=== PATIENT | male | born 2000 | race Caucasian/White ===

== ENCOUNTER → 2023-01-14 09:30 | Outpatient (BNVA) | payer OTHER, SELFPAY | PROVIDERS: Visit Provider Internal Medicine | DX: S67.21XA Crushing injury of right hand, initial encounter (principal); S67.22XA Crushing injury of left hand, initial encounter; S62.601A Fracture of unspecified phalanx of left index finger, initial encounter for closed fracture; W24.0XXA Contact with lifting devices, not elsewhere classified, initial encounter; Z23 Encounter for immunization | CPT/HCPCS: 12004; 90715; 99204 ==

== ENCOUNTER → 2023-01-15 10:51 | Outpatient (BNVA) | payer OTHER, SELFPAY | PROVIDERS: Visit Provider Physician Assistant Medical | DX: S67.21XA Crushing injury of right hand, initial encounter (principal); S67.22XA Crushing injury of left hand, initial encounter; S61.211A Laceration without foreign body of left index finger without damage to nail, initial encounter; S61.218A Laceration without foreign body of other finger without damage to nail, initial encounter; W31.9XXA Contact with unspecified machinery, initial encounter | CPT/HCPCS: 99213 ==

== ENCOUNTER → 2023-01-18 11:08 | Outpatient (BNVA) | payer OTHER, SELFPAY | PROVIDERS: Visit Provider Internal Medicine | DX: S61.211A Laceration without foreign body of left index finger without damage to nail, initial encounter (principal); S62.661A Nondisplaced fracture of distal phalanx of left index finger, initial encounter for closed fracture; W24.0XXA Contact with lifting devices, not elsewhere classified, initial encounter | CPT/HCPCS: 99214 ==

== ENCOUNTER 2023-01-22 12:08 | Outpatient (REF) | payer OTHER, SELFPAY ==
--- NOTE | ~2023-01-22 | XR_ITS ---
EXAMINATION: XR RIGHT HAND, LEFT HAND CLINICAL INFORMATION: Bilateral hand pain. COMPARISON: 01/14/2023 TECHNIQUE: 3 views each of the bilateral hands. FINDINGS: LEFT HAND: Similar appearance of mildly displaced fracture through the distal tuft of the second digit of the left hand. Small sclerotic focus overlying the lunate may represent a bone island. RIGHT HAND: The joint spaces and alignment are preserved. Bone mineralization is normal. No displaced fracture identified. XR/XR hand LT min 3V IMPRESSION: 1. Similar appearance of mildly displaced fracture through the distal tuft of the second digit of the left hand. 2. No displaced fracture of the right hand.
--- NOTE | ~2023-01-22 | XR_ITS ---
EXAMINATION: XR RIGHT HAND, LEFT HAND CLINICAL INFORMATION: Bilateral hand pain. COMPARISON: 01/14/2023 TECHNIQUE: 3 views each of the bilateral hands. FINDINGS: LEFT HAND: Similar appearance of mildly displaced fracture through the distal tuft of the second digit of the left hand. Small sclerotic focus overlying the lunate may represent a bone island. RIGHT HAND: The joint spaces and alignment are preserved. Bone mineralization is normal. No displaced fracture identified. XR/XR hand RT min 3V IMPRESSION: 1. Similar appearance of mildly displaced fracture through the distal tuft of the second digit of the left hand. 2. No displaced fracture of the right hand.
== END 2023-01-22 12:09 | disposition home or self-care (01) ==
LOC: HO.HOSX 12:08
PROVIDERS: Visit Provider Orthopaedic Surgery
DX: S62.631B Displaced fracture of distal phalanx of left index finger, initial encounter for open fracture (principal); M79.641 Pain in right hand
CPT/HCPCS: 73130; 99202

== ENCOUNTER 2023-01-22 13:42 | Outpatient (AMB) | payer OTHER, SELFPAY ==
--- NOTE | 2023-01-22 14:10 | A.OFFVIS_ITS ---
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 Seen at work connection same day where xrays were taken and he received 2-3 stitches as well. Currently states he is limited ROM, no sensation at DIP joint, swelling and has open laceration. St ates he has tinging at tip of his finger as well. 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 He complains of pain and limited ROM of his left index finger. He also says he has numbness at the tip of his index finger since his injury. He has some mild pain in his right hand but says this is tolerable and improving with time. 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 He has been taking a course of Doxycycline and denies any symptoms of infection. 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 Review of Systems Const All systems reviewed & are unremarkable except as noted in HPI and below Physical Exam Vital Signs: BMI result Body Mass Index 29.6 Const General: cooperative, healthy appearing and no acute distress Orientation/consciousness: patient oriented x3 HEENT Head: Yes normocephalic and Yes atraumatic Eyes EOM: EOMs intact bilaterally Resp Effort & Inspection: normal respiratory effort and able to speak in complete sentences Cardio Jugular venous distension: no JVD Skin General skin exam: turgor normal Rashes: no rashes Neuro General: patient oriented x3 Extrem Other: Evaluation of Left Upper Extremity: The patient is alert, oriented, and in no acute distress Neuro: Median, Ulnar, Radial nerves motor and sensory intact and sensation is normal to the tips of all digits Vascular: Cap refill brisk ROM: Mild index finger stiffness in the MCP and PIP joints. We worked on some gentle rugfs-ae-hbomai exercises with good improvement. He can make a fist and extend the middle ring and small fingers easily. The ring finger is still mildly tender from the PIP joint to the D IP joint. He has good range of motion across these joints with good stability of the joints. No tenderness across the metacarpals thumb or wrist. Skin: He has abrasions over the dorsal aspect of the index finger middle and distal phalanxes. On the volar side it looks like the skin basically ruptured longitudinally across the proximal pad D IP joint to the distal aspect of the middle phalanx. There are some absorbable sutures in place. No erythema or drainage or evidence of infection. . Radiographs: 3 views of the left hand were taken, viewed, and compared to radiographs from 01/14/23. They show a long oblique fracture of the left index finger distal phalanx, minimally displaced. Psych Appearance: grossly normal Affect: normal affect Attitude: cooperative Office Procedures Fracture Care Details: Distal phalanx fracture 54055 Fracture Billing Code: Fracture Billing Code Assessment & Plan Assessment & Plan (1) Open fracture of distal phalanx of left index finger: Code(s): S62.631B - Displaced fracture of distal phalanx of left index finger, initial encounter for open fracture Plan Assessment & Plan: 1. Left index finger open long oblique distal phalanx fracture, minimally displaced From a crush injury, DOI: 01/14/23 This is a workers comp visit I educated him about this condition I believe we can manage this non operatively. He is going to finish up his oral antibiotics. No evidence of infection today. I explained the signs and symptoms of infection, if the patient develops any new or worsening erythema, drainage, pain, or warmth they should contact the clinic or attend the ED. I am going to let him start working on wound care and home, and encouraged him to wash it with soap and water every day but no immersion. He was fitted for a finger splint to allow for PIP motion that he should wear 24/09 except for showering wound care. I discussed activity modification, he is to lift nothing heavier than a cellphone for the next for weeks He was given a note for work saying he can not continue working on light duty with a 1 lb weight limit for his left hand for 4 weeks He will follow up next week for wound check and with new radiographs three views of the left hand with attention to the index finger. Scribed for Marianne Valerio MD by Mikal Avitia, medical instrument cable fabricator, on 01/22/23 at 2:40 PM, EST. Orders: Orders XR hand LT min 3V Today M79.642 - Pain in left hand XR hand RT min 3V Today M79.641 - Pain in right hand Coding Level of Care Code New Pt Level 3 (44949) Diagnoses Open fracture of distal phalanx of left index finger S62.631B CPT Codes Fracture Care - Fracture Billing Code: Fracture Billing Code ([id number])
[2023-01-22 14:11] VITALS: BMI 29.6
== END 2023-01-22 14:54 | disposition home or self-care (01) ==
PROVIDERS: Visit Provider Orthopaedic Surgery
DX: S62.631B Displaced fracture of distal phalanx of left index finger, initial encounter for open fracture (principal)
CPT/HCPCS: 99203

== ENCOUNTER 2023-01-31 12:08 | Outpatient (REF) | payer OTHER, SELFPAY ==
--- NOTE | ~2023-01-31 | XR_ITS ---
EXAMINATION: XR HAND, LEFT CLINICAL INFORMATION: Pain. COMPARISON: Prior radiographs, most recently 01/22/2023. TECHNIQUE: PA, lateral, and oblique views of the left hand. FINDINGS: Bony alignment and mineralization are normal. An oblique fracture is seen of the shaft and distal tuft of the second distal phalanx. There is stable mild displacement, without significant callus formation. No dislocation is seen. The proximal and distal carpal rows are intact. No focal soft tissue swelling, gas or foreign body. XR/XR hand LT min 3V IMPRESSION: A stable mildly displaced fracture is seen of the second distal phalanx. No new callus formation is seen.
== END 2023-01-31 12:09 | disposition home or self-care (01) ==
LOC: HO.HOSX 12:08
PROVIDERS: Visit Provider Physician Assistant
DX: S62.631B Displaced fracture of distal phalanx of left index finger, initial encounter for open fracture (principal)
CPT/HCPCS: 73130; 99212

== ENCOUNTER 2023-01-31 15:18 | Outpatient (AMB) | payer OTHER, SELFPAY ==
--- NOTE | 2023-01-31 15:22 | A.OFFVIS_ITS ---
Intake Vital Signs 01/31/23 15:29 Height 6 ft 5 in Weight 250 lb BMI 29.6 Intake Visit Reasons: OV-B/L Crush injury LAC L 2ND Finger/XRays Intake Note: Navarro 22 yr old male presents today for his follow up visit for his fracture of distal phalanx of left index finger 01/14/23. States he has been using his splint. Currently he has mild pain. This is a W/C injury. Allergies No Known Allergies Allergy (Verified 01/31/23 15:26) HPI OV-B/L Crush injury LAC L 2ND Finger/XRays HPI Details 22-year-old right hand dominant male who presents in the office today for a follow up of a crushing injury with laceration to the left 2nd digit while at work when his hand was crushed with a pallet naveen on 01/14/2023. The patient states he has been using the splint. He reports mild pain. 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 Review of Systems Const All systems reviewed & are unremarkable except as noted in HPI and below Physical Exam Vital Signs: BMI result Body Mass Index 29.6 Const General: cooperative, healthy appearing and no acute distress Orientation/consciousness: patient oriented x3 HEENT Head: Yes normocephalic and Yes atraumatic Eyes EOM: EOMs intact bilaterally Resp Effort & Inspection: normal respiratory effort and able to speak in complete sentences Cardio Jugular venous distension: no JVD Skin General skin exam: turgor normal Rashes: no rashes Neuro General: patient oriented x3 Extrem Other: Abrasions over the dorsal aspect of the index finger middle and distal phalanxes. On the volar side it looks like the skin ruptured longitudinally across the proximal pad DIP joint to the distal aspect of the middle phalanx. No absorbable sutures are visible. No erythema or drainage or evidence of infect ion. Mild index finger stiffness in the MCP and PIP joints. We worked on some gentle yshtz-rz-tsrtpz exercises with good improvement.He can make a fist and extend the middle ring and small fingers easily. The ring finger is still mildly tender from the PIP joint to the DIP joint. He has good range of motion across these joints with good stability of the joints. Sensation is intact. Capillary refill is brisk. Psych Appearance: grossly normal Affect: normal affect Attitude: cooperative Assessment & Plan Assessment & Plan (1) Open fracture of distal phalanx of left index finger: Code(s): S62.631B - Displaced fracture of distal phalanx of left index finger, initial encounter for open fracture Plan Mr. Kenyon is a 22-year-old right hand dominant male who presents in the office today for a follow up of a crushing injury with laceration to the left 2nd digit while at work when his hand was crushed with a pallet naveen on 01/14/2023. The patient states he has been using the splint. He reports mild pain. 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 The wound was evaluated in the office today and it yields no evidence of infection. He completed his course of antibiotics on 01/21/2023 and did not notice any increase in erythema, edema, drainage, or warmth. He was educated on signs of infection, which are as follows but not limited to erythema, edema, drainage, or warmth. If he is to experience any of these symptoms he is to contact the office immediately or present to the ED. I would like to see him back in 2 weeks for a wound check. The wound was redressed and finger was splinted while in the office today at the DIP joint. Follow up will be in 2 weeks for a wound check, or sooner if needed. X-rays of the left hand which were obtained while in the office today and were reviewed by me, Falguni Nelson PA-C, revealed routine healing of a distal phalanx fracture of the left index finger. Orders: Orders XR hand LT min 3V Today M79.643 - Pain in unspecified hand Patient Instructions: Scribed for Falguni Nelson PA-C by Mariam Waller medical transcription editor, on 01/31/2023 at 3:31 pm, EST. Coding Level of Care Code Global (46224) Diagnoses Open fracture of distal phalanx of left index finger S62.631B
[2023-01-31 15:29] VITALS: BMI 29.6
== END 2023-01-31 15:36 | disposition home or self-care (01) ==
PROVIDERS: Visit Provider Physician Assistant
DX: S62.631D Displaced fracture of distal phalanx of left index finger, subsequent encounter for fracture with routine healing (principal)
CPT/HCPCS: 99213

== ENCOUNTER 2023-02-14 14:24 | Outpatient (REF) | payer OTHER, SELFPAY ==
--- NOTE | ~2023-02-14 | XR_ITS ---
EXAMINATION: XR HAND, LEFT CLINICAL INFORMATION: Pain in hand. COMPARISON: Multiple prior chest most recent 01/31/2023.. TECHNIQUE: PA, lateral, and oblique views of the left hand. FINDINGS: There is a mildly comminuted minimally displaced fracture the second distal phalanx. Alignment unchanged. There may be minimal increased density along the fracture line suggesting minimal fracture healing. No definite change compared to prior. The remaining bones joints and soft tissues unremarkable. XR/XR hand LT min 3V IMPRESSION: Minimal if any healing of the second distal phalanx fracture. No significant change compared to prior.
== END 2023-02-14 14:25 | disposition home or self-care (01) ==
LOC: HO.HOSX 14:24
PROVIDERS: Visit Provider Physician Assistant
DX: S62.661D Nondisplaced fracture of distal phalanx of left index finger, subsequent encounter for fracture with routine healing (principal); S61.211D Laceration without foreign body of left index finger without damage to nail, subsequent encounter; M79.645 Pain in left finger(s); W31.89XD Contact with other specified machinery, subsequent encounter
CPT/HCPCS: 73130; 99212

== ENCOUNTER 2023-02-14 14:24 | Outpatient (AMB) | payer OTHER, SELFPAY ==
--- NOTE | 2023-02-14 14:34 | MHC.OFFVIS ---
Intake Vital Signs 02/14/23 14:35 Height 6 ft 5 in Intake Visit Reasons: OV-B/L Crush injury LAC L 2ND Finger/XRays Intake Note: Navarro 22 yr old male presents today for his follow up visit for his fracture of distal phalanx of left index finger 01/14/23. Patient reports still having pain and discomfort. Having numbness since his injruy. Allergies No Known Allergies Allergy (Verified 02/14/23 14:35) HPI OV-B/L Crush injury LAC L 2ND Finger/XRays HPI Details 22-year-old right hand dominant male who presents in the office today for a wound check and follow up of a crushing injury with laceration to the left 2nd digit while at work when his hand was crushed with a pallet naveen on 01/14/2023. I last saw the patient in the office on 01/31/2023 status post completion of his antibiotic on 01/21/2023 with no increase of erythema, edema, drainage, or warmth. The patient reports still having pain and discomfort. He confirms having numbness since the injury. 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 Review of Systems Const All systems reviewed & are unremarkable except as noted in HPI and below Physical Exam Const General: cooperative, healthy appearing and no acute distress Orientation/consciousness: patient oriented x3 HEENT Head: Yes normocephalic and Yes atraumatic Eyes EOM: EOMs intact bilaterally Resp Effort & Inspection: normal respiratory effort and able to speak in complete sentences Cardio Jugular venous distension: no JVD Skin General skin exam: turgor normal Rashes: no rashes Neuro General: patient oriented x3 Extrem Other: Abrasions over the dorsal aspect of the index finger middle and distal phalanxes. On the volar side it looks like the skin ruptured longitudinally across the proximal pad DIP joint to the distal aspect of the middle phalanx. Absorbable sutures are visible. No erythema or drainage or evidence of infection. Mild index finger stiffness in the MCP and PIP joints. We worked on some gentle hiitj-zr-gxczcz exercises with good improvement and he was able to then reach finger tip to the palm. He can make a fist and extend the middle ring and small fingers easily. The ring finger is still mildly tender from the PIP joint to the DIP joint. He has good range of motion across these joints with good stability of the joints. Sensation is intact. Capillary refill is brisk. Psych Appearance: grossly normal Affect: normal affect Attitude: cooperative Assessment & Plan Assessment & Plan (1) Open fracture of distal phalanx of left index finger: Code(s): S62.631B - Displaced fracture of distal phalanx of left index finger, initial encounter for open fracture Qualifiers: Encounter type: subsequent encounter Fracture alignment: nondisplaced Fracture healing: with routine healing Qualified Code(s): S62.661D - Nondisplaced fracture of distal phalanx of left index finger, subsequent encounter for fracture with routine healing Plan Mr. Kenyon is a 22-year-old right hand dominant male who presents in the office today for a wound check and follow up of a crushing injury with laceration to the left 2nd digit while at work when his hand was crushed with a pallet naveen on 01/14/2023. I last saw the patient in the office on 01/31/2023 status post completion of his antibiotic on 01/21/2023 with no increase of erythema, edema, drainage, or warmth. The patient reports still having pain and discomfort. He confirms having numbness since the injury. 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 Reported observed sutures are now visible and were removed while in the office today. He will continue to splint at the DIP joint during the day but will come out of the splint at night to work on ROM. ROM exercises were demonstrated while in the office today. Prior to ROM exercises he was lacking 2 cm from making a closed fist. After the ROM exercises he could reach fingertips to palm. Follow up will be in 2 weeks. X-rays of the left hand which were obtained while in the office today and were reviewed by me, Falguni Nelson PA-C, revealed routine healing of a left 2nd digit crushing injury. Orders: Orders XR hand LT min 3V Today M79.643 - Pain in unspecified hand Patient Instructions: Scribed for Falguni Nelson PA-C by Mariam Waller medical assistant prn, on 02/14/2023 at 2:41 pm, EST. Coding Level of Care Code Global (71121) Diagnoses Open nondisplaced fracture of distal phalanx of left index finger with routine healing, subsequent encounter S62.662N Encounter type: subsequent encounter Fracture alignment: nondisplaced Fracture healing: with routine healing
== END 2023-02-14 15:33 | disposition home or self-care (01) ==
LOC: HO.HOS 14:24
PROVIDERS: Visit Provider Physician Assistant
DX: S62.661D Nondisplaced fracture of distal phalanx of left index finger, subsequent encounter for fracture with routine healing (principal)
CPT/HCPCS: 99213

== ENCOUNTER 2023-03-14 10:39 | Outpatient (REF) | payer OTHER, SELFPAY ==
--- NOTE | ~2023-03-14 | XR_ITS ---
EXAMINATION: XR HAND, LEFT CLINICAL INFORMATION: Left hand pain. COMPARISON: Left hand 02/14/2023 TECHNIQUE: PA, lateral, and oblique views of the left hand. FINDINGS: Again seen is a mildly comminuted spiral fracture through the distal phalanx of the index finger which does not involve the joint space. There is no bony fusion seen as of yet. Alignment is unchanged when compared to the prior study. No evidence of significant fracture fragment bony bridging. XR/XR hand LT min 3V IMPRESSION: Unchanged appearances of distal phalangeal fracture of the index finger.
== END 2023-03-14 10:40 | disposition home or self-care (01) ==
LOC: HO.HOSX 10:39
PROVIDERS: Visit Provider Physician Assistant
DX: S62.661D Nondisplaced fracture of distal phalanx of left index finger, subsequent encounter for fracture with routine healing (principal)
CPT/HCPCS: 73130; 99212

== ENCOUNTER 2023-03-14 15:09 | Outpatient (AMB) | payer OTHER, SELFPAY ==
[2023-03-14 15:26] VITALS: BMI 29.6
--- NOTE | 2023-03-14 15:26 | MHC.OFFVIS ---
Intake Vital Signs 03/14/23 15:26 Height 6 ft 5 in Weight 250 lb BMI 29.6 Intake Visit Reasons: OV-B/L Crush injury LAC L 2ND Finger/XRays Intake Note: Navarro, 22 year old male, presents today for a f/u for his 2nd finger of his left hand. He reports stiffness, limited range of motion, and pain when flexing from the scar. Allergies No Known Allergies Allergy (Verified 03/14/23 15:27) HPI OV-B/L Crush injury LAC L 2ND Finger/XRays HPI Details 22-year-old male who presents in the office today right hand dominant male who presents in the office today for a wound check and follow up of a crushing injury with laceration to the left 2nd digit while at work when his hand was crushed with a pallet naveen on 01/14/2023. I last saw the patient in the office on 02/14/2023 where he was placed back into the splint at the DIP joint for during the day but could remove it at night to work on ROM. The patient reports limited ROM due to stiffness. He also reports pain with flexion at the scar. 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 Review of Systems Const All systems reviewed & are unremarkable except as noted in HPI and below Physical Exam Vital Signs: BMI result Body Mass Index 29.6 Const General: cooperative, healthy appearing and no acute distress Orientation/consciousness: patient oriented x3 HEENT Head: Yes normocephalic and Yes atraumatic Eyes EOM: EOMs intact bilaterally Resp Effort & Inspection: normal respiratory effort and able to speak in complete sentences Cardio Jugular venous distension: no JVD Rate: regular rate Peripheral pulses: Peripheral pulses 2+ throughout GI Palpation (GI): Soft to palpation Skin General skin exam: turgor normal Lesions: no lesions Rashes: no rashes Neuro General: patient oriented x3 Extrem Other: Left hand: Abrasions over the dorsal aspect of the index finger middle and distal phalanxes are completely healed. Hypersensitivity over the healed abrasions and at the finger pad. No erythema or drainage or evidence of infection. Able to make a full fist. Capillary refill is brisk. Psych Appearance: grossly normal Affect: normal affect Attitude: cooperative Assessment & Plan Assessment & Plan (1) Open fracture of distal phalanx of left index finger: Code(s): S62.631B - Displaced fracture of distal phalanx of left index finger, initial encounter for open fracture Qualifiers: Encounter type: subsequent encounter Fracture alignment: nondisplaced Fracture healing: with routine healing Qualified Code(s): S62.661D - Nondisplaced fracture of distal phalanx of left index finger, subsequent encounter for fracture with routine healing Plan Mr. Kenyon is a 22-year-old male who presents in the office today right hand dominant male who presents in the office today for a wound check and follow up of a crushing injury with laceration to the left 2nd digit while at work when his hand was crushed with a pallet naveen on 01/14/2023. I last saw the patient in the office on 02/14/2023 where he was placed back into the splint at the DIP joint for during the day but could remove it at night to work on ROM. The patient reports limited ROM due to stiffness. He also reports pain with flexion at the scar. The patient is going to attend occupational therapy to work on desensitization of the left index finger along both the dorsal and palmar aspect of the left index finger where the laceration sites were. He also reports hypersensitivity at the finger pad. He will work on this with occupational therapy and follow up with me in 4 weeks, or sooner if needed. X-rays of the left hand which were obtained while in the office today and were reviewed by me, Falguni Nelson PA-C, revealed routine healing distal phalanx of the left index finger. Orders: Orders XR hand LT min 3V Today M79.643 - Pain in unspecified hand Patient Instructions: Scribed for Falguni Nelson PA-C by Mariam Waller certified ophthalmic medical technician, on 03/14/2023 at 3:12 pm, EST. Coding Level of Care Code Global (74550) Diagnoses Open nondisplaced fracture of distal phalanx of left index finger with routine healing, subsequent encounter S62.661D Encounter type: subsequent encounter Fracture alignment: nondisplaced Fracture healing: with routine healing
== END 2023-03-14 15:38 | disposition home or self-care (01) ==
PROVIDERS: Visit Provider Physician Assistant
DX: S62.661D Nondisplaced fracture of distal phalanx of left index finger, subsequent encounter for fracture with routine healing (principal)
CPT/HCPCS: 99213

== ENCOUNTER 2023-04-12 12:37 | Outpatient (REF) | payer OTHER, SELFPAY ==
--- NOTE | ~2023-04-12 | XR_ITS ---
EXAMINATION: XR HAND, LEFT CLINICAL INFORMATION: Pain and unspecified hand. COMPARISON: 03/14/2023, 02/14/2023. TECHNIQUE: PA, lateral, and oblique views of the left hand. FINDINGS: Redemonstration of a mildly comminuted spiral fracture through the distal phalanx of the second digit. Fracture line is still visible, although less distinct, suggesting some mild callus formation. XR/XR hand LT min 3V IMPRESSION: Redemonstration of a mildly comminuted spiral fracture through the distal phalanx of the second digit. Fracture line is still visible, although less distinct, suggesting some mild callus formation.
== END 2023-04-12 12:38 | disposition home or self-care (01) ==
LOC: HO.HOSX 12:37
PROVIDERS: Visit Provider Physician Assistant
DX: S62.661D Nondisplaced fracture of distal phalanx of left index finger, subsequent encounter for fracture with routine healing (principal)
CPT/HCPCS: 73130; 99212

== ENCOUNTER 2023-04-12 15:18 | Outpatient (AMB) | payer OTHER, SELFPAY ==
--- NOTE | 2023-04-12 15:26 | MHC.OFFVIS ---
Intake Intake Visit Reasons: OV-B/L Crush injury LAC L 2ND Finger-follow up Intake Note: Navarro, 22 year old male, presents today for a f/u for his 2nd finger of his left hand. He reports he is doing well, yet he is having some dull pain on the tip of his finger. Allergies No Known Allergies Allergy (Verified 03/14/23 15:27) HPI OV-B/L Crush injury LAC L 2ND Finger-follow up HPI Details 22-year-old right hand dominant male who presents in the office today for a wound check and follow up of a crushing injury with laceration to the left 2nd digit while at work when his hand was crushed with a pallet naveen on 01/14/2023. I last saw the patient in the office on 03/14/2023 where he was referred to occupational therapy to work on desensitizing the left index finger. While in the office today the patient reports he is doing well. He is having some dull pain on the tip of his finger. 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 Review of Systems Const All systems reviewed & are unremarkable except as noted in HPI and below Physical Exam Const General: cooperative, healthy appearing and no acute distress Orientation/consciousness: patient oriented x3 HEENT Head: Yes normocephalic and Yes atraumatic Eyes EOM: EOMs intact bilaterally Resp Effort & Inspection: normal respiratory effort and able to speak in complete sentences Cardio Jugular venous distension: no JVD Rate: regular rate Peripheral pulses: Peripheral pulses 2+ throughout GI Palpation (GI): Soft to palpation Skin General skin exam: turgor normal Lesions: no lesions Rashes: no rashes Neuro General: patient oriented x3 Extrem Other: Left hand: Abrasions over the dorsal aspect of the index finger middle and distal phalanxes are completely healed. Slight hypersensitivity over the healed abrasions and at the finger pad. No erythema or drainage or evidence of infection. Able to make a full fist. Capillary refill is brisk. Psych Appearance: grossly normal Affect: normal affect Attitude: cooperative Assessment & Plan Assessment & Plan (1) Open fracture of distal phalanx of left index finger: Code(s): S62.631B - Displaced fracture of distal phalanx of left index finger, initial encounter for open fracture Qualifiers: Encounter type: subsequent encounter Fracture alignment: nondisplaced Fracture healing: with routine healing Qualified Code(s): S62.661D - Nondisplaced fracture of distal phalanx of left index finger, subsequent encounter for fracture with routine healing Plan Mr. Kenyon is a 22-year-old right hand dominant male who presents in the office today for a wound check and follow up of a crushing injury with laceration to the left 2nd digit while at work when his hand was crushed with a pallet naveen on 01/14/2023. I last saw the patient in the office on 03/14/2023 where he was referred to occupational therapy to work on desensitizing the left index finger. While in the office today the patient reports he is doing well. He is having some dull pain on the tip of his finger. The patient reports he was unable to attend occupational therapy due to switching hours at work. He reports he now works late into the evening, therefore, he will work on an at home exercise program. 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 Follow up will be PRN, or sooner if needed. X-rays of the left hand which were obtained while in the office today and were reviewed by me, Falguni Nelson PA-C, revealed routine healing of a left index distal phalanx fracture. Orders: Orders XR hand LT min 3V Today M79.643 - Pain in unspecified hand Patient Instructions: Scribed by Mariam Waller medical device sales consultant, for Falguni Nelson PA-C on 04/12/2023 at 3:21 pm, EST. Coding Level of Care Code Global (70351) Diagnoses Open nondisplaced fracture of distal phalanx of left index finger with routine healing, subsequent encounter S62.661D Encounter type: subsequent encounter Fracture alignment: nondisplaced Fracture healing: with routine healing
== END 2023-04-12 15:31 | disposition home or self-care (01) ==
PROVIDERS: Visit Provider Physician Assistant
DX: S62.661D Nondisplaced fracture of distal phalanx of left index finger, subsequent encounter for fracture with routine healing (principal)
CPT/HCPCS: 99213